=== PATIENT | male | born 2000 | race Caucasian/White ===

== ENCOUNTER 2019-11-16 14:51 | Emergency (ER) | payer OTHER ==
[~2019-11-16] VITALS: Ht 182.9 cm; Wt 97.5 kg
--- OUTSIDE RECORDS SUMMARY | ~2019-11-16 | XMS | Encounter Summary ---
Demographics + + + | Address | [address] | | | [place] [address] | + + + | Home Phone | | + + + | Preferred Language | Unknown | + + + | Marital Status | Single | + + + | Mormonism Affiliation | Unknown | + + + | Race | Unknown | + + + | Ethnic Group | Unknown | + + + Author + + + | Author | [facility] | | | and [place] | + + + | Organization | [facility] | | | and [place] | + + + | Address | Unknown | + + + | Phone | Unavailable | + + + Care Team Providers + +------+ + | Care Senior Science Consultant Name | Role | Phone | + +------+ + PCP | Unavailable | + +------+ + Encounter Details +--------+ + + + + | Date | Type | Department | Care Team | Description | +--------+ + + + + | 05/14/ | Hospital | [facility] | Marta Lockhart | | | 2012 | Encounter | CONVERSION | MD [address] | | | | | DEPARTMENT [address] [place] | [place] [address] | | | | | [place], [place] | [phone] | | | | | [address] | | | | | | [phone] | | | +--------+ + + + + Social History + +-------+ +--------+------+ | Tobacco Use | Types | Packs/Day | Years | Date | | | | | Used | | + +-------+ +--------+------+ | Never Assessed | | | | | + +-------+ +--------+------+ + + + | Sex Assigned at | Date Recorded | | | | + + + | Not on file | | + + + + + + + | Job Start Date | Occupation | Industry | + + + + | Not on file | Not on file | Not on file | + + + + + + + + | Travel History | Travel Start | Travel End | + + + + + + | No recent travel history available. | + + documented as of this encounter Plan of Treatment Not on filedocumented as of this encounter Visit Diagnoses Not on filedocumented in this encounter"
--- OUTSIDE RECORDS SUMMARY | ~2019-11-16 | XMS | Encounter Summary ---
Demographics + + + | Address | [address] | | | [place] [address] | + + + | Home Phone | | + + + | Preferred Language | Unknown | + + + | Marital Status | Single | + + + | Rastafarian Affiliation | Unknown | + + + | Race | Unknown | + + + | Ethnic Group | Unknown | + + + Author + + + | Author | [facility] | | | and [place] | + + + | Organization | [facility] | | | and [place] | + + + | Address | Unknown | + + + | Phone | Unavailable | + + + Care Team Providers + +------+ + | Care Customer Support Assistant Name | Role | Phone | + [...] | | | DEPART[address] [place] | [place] [address] | | | | | [place], [place] | [phone] | | | | | [address] | | | | | | [phone] | | | +--------+ + + + [...]
--- OUTSIDE RECORDS SUMMARY | ~2019-11-16 | XMS | Clinical Summary ---
Demographics + + + | Address | [address] | | | [place] [address] | + + + | Home Phone | | + + + | Preferred Language | Unknown | + + + | Marital Status | Single | + + + | Adventism Affiliation | Unknown | + + + | Race | Unknown | + + + | Ethnic Group | Unknown | + + + Author + + + | Author | [facility] | | | and [place] | + + + | Organization | [facility] | | | and [place] | + + + | Address | Unknown | + + + | Phone | Unavailable | + + + Care Team Providers + +------+ + | Care Field Return Repairer Name | Role | Phone | + +------+ + PCP | Unavailable | + +------+ + Allergies Not on File Medications Not on file Active Problems Not on file Social History + +-------+ +--------+------+ | Tobacco [...] recent travel history available. | + + Last Filed Vital Signs Not on file Plan of Treatment + + + + + | Health Maintenance | Due Date | Last Done | Comments | + + + + + | Well Child Check | | | | | | 1 | | | + + + + + | Vaccine: | | | | | Dtap/Tdap/Td (1 - | 9 | | | | Tdap) | | | | + + + + + | Vaccine: HPV (1 - | | | | | Male 2-dose series) | 9 | | | + + + + + | Vaccine: Influenza | | | | | (#1) | 9 | | | + + + + + Results Not on filefrom Last 3 Months"
--- OUTSIDE RECORDS SUMMARY | ~2019-11-16 | XMS | Clinical Summary ---
Demographics + + + | Address | [address] | | | [place] [address] | + + + | Home Phone | | + + + | Preferred Language | Unknown | + + + | Marital Status | Single | + + + | Christianity Affiliation | Unknown | + + + | Race | Unknown | + + + | Ethnic Group | Unknown | + + + Author + + + | Author | [facility] | | | and [place] | + + + | Organization | [facility] | | | and [place] | + + + | Address | Unknown | + + + | Phone | Unavailable | + + + Care Team Providers + +------+ + | Care Industrial Roof Plumber Name | Role | Phone | + [...]
[~2019-11-16 14:51] MED LIST: BACTRIM DS TAB1 EACH PO; CRUTCH1 EACH; IBUPROFEN600 MG PO; KEFLEX500 MG PO; NORCO 5-325 TA1 EACH PO; PERCOCET 5-3251 EACH PO; TRAMADOL HCL50 MG PO; TYLENOL325 MG PO
--- NOTE | 2019-11-17 19:27 | EKG ---
[facility] [address] [place] [address] Signed Normal sinus rhythm with sinus arrhythmia Normal ECG No previous ECGs available Confirmed by SD HOFFMAN MD ([id number]) on 11/17/2019 7:27:45 PM Electronically Signed By: SD HOFFMAN MD 11/17/191926 PATIENT NAME: NESSA LARA Electrocardiogram DATE OF : 89 PHYSICIAN: SD HOFFMAN MD REPORT #: [id number] REPORT IS CONFIDENTIAL AND NOT TO BE RELEASED WITHOUT AUTHORIZATION
== END 2019-11-16 17:17 | disposition home or self-care (01) ==
LOC: ED 14:51
DX: F41.9 Anxiety disorder, unspecified (principal); Z87.891 Personal history of nicotine dependence
CPT/HCPCS: 71045; 80053; 84484; 85025; 85379; 93005; 93010; 99285-25

== ENCOUNTER 2023-11-28 16:34 | Emergency (ER) | payer OTHER ==
[~2023-11-28] VITALS: Ht 182.9 cm; Wt 81.7 kg
[2023-11-28] MEDS ORDERED: FLUTICASONE-SAL12 G1 (16:46)
[2023-11-28] MEDS ORDERED: VENTOLIN HFA18 GM INH (16:46)
[2023-11-28 18:42] VITALS: BP 111/63
== END 2023-11-28 18:43 | disposition home or self-care (01) ==
LOC: ED 16:34
DX: S83.92XA Sprain of unspecified site of left knee, initial encounter (principal); S83.91XA Sprain of unspecified site of right knee, initial encounter; S20.312A Abrasion of left front wall of thorax, initial encounter; S40.812A Abrasion of left upper arm, initial encounter; Y04.0XXA Assault by unarmed brawl or fight, initial encounter; Z87.891 Personal history of nicotine dependence
CPT/HCPCS: 73560; 99284-25; A9270

== ENCOUNTER 2023-12-01 09:00 | Emergency (ER) | payer OTHER ==
[~2023-12-01] VITALS: Ht 182.9 cm; Wt 82.5 kg
[~2023-12-01 09:00] MED LIST changes: +FLUTICASONE-SAL12 G1; +VENTOLIN HFA18 GM INH
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
[2023-12-01] MEDS ORDERED: TYLENOL325 MG PO (09:35)
[2023-12-01] MEDS ORDERED: IBUPROFEN200 MG PO (09:36)
[2023-12-01 10:47] VITALS: BP 138/72
== END 2023-12-01 10:48 | disposition home or self-care (01) ==
LOC: ED 09:00
DX: F07.81 Postconcussional syndrome (principal); J45.909 Unspecified asthma, uncomplicated; Z87.891 Personal history of nicotine dependence; Z79.899 Other long term (current) drug therapy
CPT/HCPCS: 70450; 99283-25